=== PATIENT | male | born 1960 | race Two or more races ===

== ENCOUNTER 2020-09-15 05:45 | Outpatient (CLI) | payer OTHER | END 2020-09-15 23:59 | disposition home or self-care (01) | LOC: LAB 05:45 | PROVIDERS: ATTEND Specialist | DX: Z01.812 Encounter for preprocedural laboratory examination (principal); Z20.822 Contact with and (suspected) exposure to COVID-19 | CPT/HCPCS: 87426; C9803; U0003 ==

== ENCOUNTER 2020-09-21 05:56 | Day surgery (SDC) | payer OTHER ==
[2020-09-21] MEDS ORDERED: MIDAZOLAM HCL 2 MG/2ML VIAL ONE (06:32)
[2020-09-21] MEDS ORDERED: FENTANYL PF 250MCG/5ML AMPUL ONE (06:32)
[2020-09-21] MEDS ORDERED: methylPREDNISolone ACETATE 80 MG/ML VIAL ONE (06:52)
[2020-09-21] MEDS ORDERED: BUPIVACAINE 0.5 % PF 150 MG/30 ML VIAL ONE (06:53)
== END 2020-09-21 09:50 | disposition home or self-care (01) ==
LOC: DS 05:56
PROVIDERS: ATTEND Specialist
DX: S83.241A Other tear of medial meniscus, current injury, right knee, initial encounter (principal); X58.XXXA Exposure to other specified factors, initial encounter; Y93.89 Activity, other specified; Y92.89 Other specified places as the place of occurrence of the external cause; Y99.8 Other external cause status; M94.261 Chondromalacia, right knee; I10 Essential (primary) hypertension; E78.5 Hyperlipidemia, unspecified; Z79.899 Other long term (current) drug therapy
CPT/HCPCS: 29881; A4217; A6253; J0690; J1040; J1885; J2250; J2405; J2704; J2765; J3010; J3490